=== PATIENT | female | born 1960 ===

== ENCOUNTER 2017-10-21 19:23 | Emergency (ER) | payer OTHER ==
[~2017-10-21] VITALS: Ht 160 cm; Wt 62.1 kg
[2017-10-21] MEDS ORDERED: CITALOPRAM 20 MG (20:13)
[2017-10-21] MEDS ORDERED: OLME20TA21 (20:14)
--- NOTE | 2017-10-21 20:22 | NUR ---
Patient walked in to ER c/o laceration to head. Patient states she was attempting to hit a dog with a glass bottle when she struck her head with the bottle. 0.2 mm laceration observed to the top of her head. Wound irrigated with NS and peroxide, patient tolerated well. RADHAD performed MSE.
[2017-10-21] MEDS ORDERED: NEOMY/BACITRA/POLYMYXIN B OINT UD PACKET TP ONE ×2 (20:45→21:01)
--- NOTE | 2017-10-21 20:52 | NUR ---
Patient discharged to home in stable conditon. Written and verbal after care instructions given. Patient verbalizes understanding of instructions.
== END 2017-10-21 20:54 | disposition home or self-care (01) ==
LOC: ER 19:26
DX: S01.01XA Laceration without foreign body of scalp, initial encounter (principal); I10 Essential (primary) hypertension; X58.XXXA Exposure to other specified factors, initial encounter; Y93.89 Activity, other specified; Y92.89 Other specified places as the place of occurrence of the external cause; Y99.8 Other external cause status
CPT/HCPCS: 99282; A4217; A4663